=== PATIENT | female | born 1960 | race Caucasian/White ===

== ENCOUNTER → 2016-03-14 | Outpatient (CLI) | payer BC ==
[~2016-03-14] MED LIST: LEVO-240 PO; LEVO100T7 PO; LPT/20 PO; PRT/40 PO; ZLF/100 PO
--- NOTE | 2016-03-14 15:47 | MAMMOGRAPHY REPORT ---
BILATERAL DIGITAL SCREENING MAMMOGRAM TOMOSYNTHESIS WITH CAD: 03/14/2016 TECHNIQUE: Breast tomosynthesis in addition to standard 2D mammography was performed. Current study was also evaluated with a Computer Aided Detection (CAD) system. COMPARISON: Comparison is made to exams dated: 03/10/2015 mammogram, 03/08/2014 mammogram, 02/21/2012 m ammogram, 03/05/2013 mammogram, 02/19/2011 mammogram, and 02/15/2010 mammogram - [facility]. BREAST COMPOSITION: There are scattered areas of fibroglandular density in both breasts. FINDINGS: No suspicious masses, calcifications, or areas of architectural distortion are noted in e ither breast. There has been no significant interval change compared to prior exams. IMPRESSION: ACR BI-RADS CATEGORY 1: NEGATIVE There is no mammographic evidence of malignancy. A 1 year screening mammogram is recommended. The p atient will receive written notification of the results. Approximately 10% of breast cancers are not detected with mammography. A negative mammographic repor t should not delay biopsy if a clinically suggestive mass is present. Elizabeth Wooten M.D. /:03/14/2016 15:20:01 Rental Sales Agent: Aaliyah URIAS(Shaina)(M), [facility] letter sent: Normal 1/2 BI-RADS Code: ACR BI-RADS Category 1: Negative
== END | disposition home or self-care (01) ==
LOC: C.MAMM 09:37
PROVIDERS: ATTEND Obstetrics & Gynecology
DX: Z12.31 Encounter for screening mammogram for malignant neoplasm of breast (principal)

== ENCOUNTER → 2016-07-16 | Outpatient (CLI) | payer BC ==
[~2016-07-16] MED LIST changes: +PANT40TA2 PO; -PRT/40 PO
== END | disposition home or self-care (01) ==
LOC: C.PAPS 08:50
PROVIDERS: ATTEND Obstetrics & Gynecology
DX: Z01.419 Encounter for gynecological examination (general) (routine) without abnormal findings (principal)

== ENCOUNTER → 2017-03-18 | Outpatient (CLI) | payer OTHER ==
[~2017-03-18] MED LIST changes: -LPT/20 PO; +LPT20 PO
--- NOTE | 2017-03-19 07:52 | MAMMOGRAPHY REPORT ---
BILATERAL DIGITAL SCREENING MAMMOGRAM TOMOSYNTHESIS WITH CAD: 03/18/2017 CLINICAL HISTORY: Routine screening examination. TECHNIQUE: Breast tomosynthesis in addition to standard 2D mammography was performed. Current study was also evaluated with a Computer Aided Detection (CAD) system. COMPARISON: Comparison is made to exams dated: 03/14/2016 mammogram, 03/10/2015 mammogram, 03/08/2014 carmela mogram, 03/05/2013 mammogram, 02/21/2012 mammogram, and 02/19/2011 mammogram - [facility]. BREAST COMPOSITION: There are scattered areas of fibroglandular density in both breasts. FINDINGS: The parenchymal pattern is similar to prior mammograms, including stable asymmetry in the lateral right breast. No developing mass, architectural distortion or cluster of suspicious microcal cifications is seen in either breast. IMPRESSION: ACR BI-RADS CATEGORY 2: BENIGN There is no mammographic evidence of malignancy. A 1 year screening mammogram is recommended. The pa tient will receive written notification of the results. Approximately 10% of breast cancers are not detected with mammography. A negative mammographic report should not delay biopsy if a clinically suggestive mass is present. Kate Meneses M.D. ay/:03/18/2017 15:47:42 Communications Field Technician: Sarah URIAS(Shaina)(Bhanu), [facility] letter sent: Normal 1/2 BI-RADS Code: ACR BI-RADS Category 2: Benign
== END | disposition home or self-care (01) ==
LOC: C.MAMM 08:37
PROVIDERS: ATTEND Obstetrics & Gynecology
DX: Z12.31 Encounter for screening mammogram for malignant neoplasm of breast (principal)

== ENCOUNTER → 2017-07-01 | Outpatient (CLI) | payer OTHER ==
--- NOTE | 2017-07-01 16:19 | DIAGNOSTIC IMAGING REPORT ---
R FOOT MIN 3 VIEWS ROUTINE CLINICAL HISTORY: M79.674 trauma COMPARISON: None DISCUSSION: Transverse fracture base proximal phalanx fifth toe. Oblique nondisplaced cortical fracture proximal phalanx fourth toe. Generalized localized soft tissue edema. All remaining osseous structures are unremarkable. Mild bunion deformity distal first metatarsal. Subtalar joint is intact. IMPRESSION: 1. Transverse nondisplaced fracture base proximal phalanx fifth toe. 2. Oblique nondisplaced fracture proximal phalanx fourth toe. 3. Localized soft tissue edema The above report was generated using voice recognition software. It may contain grammatical, syntax or spelling errors. Electronically signed by: Kaz Luke M.D. 07/01/2017 4:18 PM Dictated Date/Time: 07/01/2017 4:16 PM
== END | disposition home or self-care (01) ==
LOC: C.RAD1850 15:51
PROVIDERS: ATTEND Student in an Organized Health Care Education/Training Program
DX: S92.534A Nondisplaced fracture of distal phalanx of right lesser toe(s), initial encounter for closed fracture (principal); X58.XXXA Exposure to other specified factors, initial encounter

== ENCOUNTER → 2017-07-17 | Outpatient (CLI) | payer OTHER | END | disposition home or self-care (01) | LOC: C.PAPS 11:33 | PROVIDERS: ATTEND Obstetrics & Gynecology | DX: Z01.419 Encounter for gynecological examination (general) (routine) without abnormal findings (principal) ==

== ENCOUNTER 2023-06-20 02:53 | Observation (INO) ==
[2023-06-20] MEDS: NITROGLYCERIN 2% OINTMENT 30GM TUBE EXT ONE (03:09)
[2023-06-20] MEDS: ASPIRIN 81 MG CHEW PO STA (03:10)
--- NOTE | 2023-06-20 03:11 | Emergency Department Note ---
History of Present Illness General Chief complaint: Chest Pain Stated complaint: CHEST PAIN Time Seen by Provider: 06/20/23 02:59 History of Present Illness Maximum Pain Intensity: 5 This is a 63-year-old female presenting to the emergency department for evaluation of left-sided chest pain that began roughly 20 minutes prior to arrival around 2:30 AM. Patient states that the pain is a heaviness at the left side of her sternum. Pain is persistent and she does have the discomfort on arrival to the ER. The discomfort is rated a 5/10. Patient did travel to and from [place] 2 months ago, but no recent travel since then. Patient is usually healthy with known history of elevated cholesterol. She does not have any known cardiopulmonary disease or diabetes otherwise. Patient's mother does have history of multiple cardiac conditions, but is still alive at the age of 8585 years old. Patient has not had fevers or chills. She may have some mild dizziness. She did take a regular aspirin before coming to the ER. Home Medications Medication Instructions Recorded Confirmed Type calcium citrate 200 mg (950 mg) PO 11/10/18 05/29/23 History tablet multivitamin (Multiple Vitamins 1 tab PO DAILY 11/10/18 04/10/21 History tablet) levothyroxine 100 mcg capsule 100 mcg PO DAILY 12/11/18 05/29/23 History famotidine PO 04/10/21 05/29/23 History bupropion HCl 300 mg 24 hr tablet, mg PO 05/29/23 05/29/23 History extended release estradiol 0.01% (0.1 mg/gram) 1 g vaginal .COMPLEX #42.5 grams 05/29/23 05/29/23 Rx vaginal cream Allergies Allergy/AdvReac Type Severity Reaction Status Date / Time No Known Drug Allergies Allergy Verified 05/29/23 15:46 pollen extracts Allergy Verified 05/29/23 15:46 Past Med/Surg History Medical History (Updated 06/20/23 @ 05:57 by Asael Shahid PA-C) Pelvic pain Follicular cystitis Surgical History S/P laparoscopy Hx of section S/P appendectomy Family History Father Colorectal cancer Prostate cancer Mother Diabetes Heart disease Aunt Breast cancer Denies family history of Ovarian cancer Social History Smoking Status: Never smoker Do You Dip or Chew Tobacco: No; Preferred Language: Bahraini Feels Safe at Home: Yes Review of Systems A total of 10 systems reviewed and were otherwise negative Physical Exam Vital Signs Vital Signs - 24 hr 06/20/23 02:54 06/20/23 03:00 06/20/23 03:01 Temperature 36.5 C Temperature Source Temporal Artery Scan Pulse Rate 84 85 Pulse Rate [Apical] Pulse Rate from SpO2 Sensor Pulse Rhythm Regular Pulse Strength Normal Respiratory Rate 20 Respiratory Effort / Characteristics Non-Labored Spontaneous Respiratory Depth Normal Respiratory Pattern Regular Blood Pressure 164/84 H 149/91 H Blood Pressure [Right Arm] Blood Pressure Mean 110 109 Blood Pressure Mean [Right Arm] Blood Pressure Position Sitting Pulse Oximetry 99 Oxygen Delivery Method Room Air Oxygen Flow Rate Sepsis Recent Fever Within 48 Hours No Sepsis New/Unexplained Change in Mental Status No Sepsis Action Taken by Nursing No Action Required 06/20/23 03:01 06/20/23 03:11 06/20/23 03:11 Temperature Temperature Source Pulse Rate 89 Pulse Rate [Apical] Pulse Rate from SpO2 Sensor 89 Pulse Rhythm Pulse Strength Respiratory Rate 13 Respiratory Effort / Characteristics Respiratory Depth Respiratory Pattern Blood Pressure 146/98 H 146/98 H Blood Pressure [Right Arm] Blood Pressure Mean 119 119 Blood Pressure Mean [Right Arm] Blood Pressure Position Pulse Oximetry 100 Oxygen Delivery Method Oxygen Flow Rate Sepsis Recent Fever Within 48 Hours Sepsis New/Unexplained Change in Mental Status Sepsis Action Taken by Nursing 06/20/23 03:11 06/20/23 03:15 06/20/23 03:15 Temperature Temperature Source Pulse Rate 82 77 Pulse Rate [Apical] Pulse Rate from SpO2 Sensor Pulse Rhythm Pulse Strength Respiratory Rate 15 13 Respiratory Effort / Characteristics Respiratory Depth Respiratory Pattern Blood Pressure 139/92 Blood Pressure [Right Arm] Blood Pressure Mean 113 Blood Pressure Mean [Right Arm] Blood Pressure Position Pulse Oximetry Oxygen Delivery Method Oxygen Flow Rate Sepsis Recent Fever Within 48 Hours Sepsis New/Unexplained Change in Mental Status Sepsis Action Taken by Nursing 06/20/23 03:30 06/20/23 03:30 06/20/23 03:45 Temperature Temperature Source Pulse Rate 78 Pulse Rate [Apical] Pulse Rate from SpO2 Sensor Pulse Rhythm Pulse Strength Respiratory Rate 17 Respiratory Effort / Characteristics Respiratory Depth Respiratory Pattern Blood Pressure 148/91 H 127/85 Blood Pressure [Right Arm] Blood Pressure Mean 117 94 Blood Pressure Mean [Right Arm] Blood Pressure Position Pulse Oximetry Oxygen Delivery Method Oxygen Flow Rate Sepsis Recent Fever Within 48 Hours Sepsis New/Unexplained Change in Mental Status Sepsis Action Taken by Nursing 06/20/23 03:45 06/20/23 03:53 06/20/23 04:00 Temperature Temperature Source Pulse Rate 72 Pulse Rate [Apical] 73 Pulse Rate from SpO2 Sensor Pulse Rhythm Pulse Strength Respiratory Rate 16 16 Respiratory Effort / Characteristics Respiratory Depth Respiratory Pattern Blood Pressure 134/93 Blood Pressure [Right Arm] 134/93 Blood Pressure Mean 106 Blood Pressure Mean [Right Arm] 106 Blood Pressure Position Pulse Oximetry 95 Oxygen Delivery Method Oxygen Flow Rate Sepsis Recent Fever Within 48 Hours Sepsis New/Unexplained Change in Mental Status Sepsis Action Taken by Nursing 06/20/23 04:00 06/20/23 04:17 06/20/23 04:17 Temperature Temperature Source Pulse Rate 77 Pulse Rate [Apical] Pulse Rate from SpO2 Sensor Pulse Rhythm Pulse Strength Respiratory Rate 18 Respiratory Effort / Characteristics Respiratory Depth Respiratory Pattern Blood Pressure Blood Pressure [Right Arm] Blood Pressure Mean Blood Pressure Mean [Right Arm] Blood Pressure Position Pulse Oximetry 98 98 Oxygen Delivery Method Room Air Room Air Oxygen Flow Rate 0 0 Sepsis Recent Fever Within 48 Hours Sepsis New/Unexplained Change in Mental Status Sepsis Action Taken by Nursing 06/20/23 04:30 06/20/23 04:30 06/20/23 04:45 Temperature Temperature Source Pulse Rate 70 Pulse Rate [Apical] Pulse Rate from SpO2 Sensor Pulse Rhythm Pulse Strength Respiratory Rate 13 Respiratory Effort / Characteristics Respiratory Depth Respiratory Pattern Blood Pressure 127/82 122/81 Blood Pressure [Right Arm] Blood Pressure Mean 96 88 Blood Pressure Mean [Right Arm] Blood Pressure Position Pulse Oximetry Oxygen Delivery Method Oxygen Flow Rate Sepsis Recent Fever Within 48 Hours Sepsis New/Unexplained Change in Mental Status Sepsis Action Taken by Nursing 06/20/23 04:45 06/20/23 05:00 06/20/23 05:00 Temperature Temperature Source Pulse Rate 71 70 Pulse Rate [Apical] Pulse Rate from SpO2 Sensor 71 70 Pulse Rhythm Pulse Strength Respiratory Rate 15 15 Respiratory Effort / Characteristics Respiratory Depth Respiratory Pattern Blood Pressure 113/73 Blood Pressure [Right Arm] Blood Pressure Mean 89 Blood Pressure Mean [Right Arm] Blood Pressure Position Pulse Oximetry 99 97 Oxygen Delivery Method Oxygen Flow Rate Sepsis Recent Fever Within 48 Hours Sepsis New/Unexplained Change in Mental Status Sepsis Action Taken by Nursing VITALS: Vitals are noted on the nurse's note and reviewed by myself. Vital signs stable. GENERAL: Well-developed, well-nourished, white female, who is in no acute distress and resting comfortably. Patient is cooperative with the examination. HEAD: Normocephalic atraumatic. HEART: Regular rate and rhythm without murmurs gallops or rubs. LUNGS: Clear to auscultation bilaterally without wheezes, rales or rhonchi. No retractions or accessory muscle use. ABDOMEN: Positive normal bowel sounds x 4. Soft, nontender, without masses or organomegaly. No guarding or rebound tenderness. MUSCULOSKELETAL: No muscle atrophy, erythema, or edema noted. Full range of motion in all extremities. Course Administered Medications Discontinued Medications Aspirin (Aspirin 81 Mg Chew) 324 mg PO NOW STA Stop: 06/20/23 03:03 Last Admin: 06/20/23 03:10 Dose: Not Given Documented By: DENIA Nitroglycerin (Nitroglycerin 2% Ointment 30gm Tube) 1 inch EXT NOW ONE Stop: 06/20/23 03:03 Last Admin: 06/20/23 03:09 Dose: 1 inch Documented By: DENIA Medical Decision Making Differential Diagnosis Differential diagnosis includes, but is not limited to: Myocardial infarction, dysrhythmia, pericarditis, pneumothorax, aortic aneurysm/dissection, DVT/PE, anxiety, GERD, PUD, electrolyte imbalance, thyroid disorder, pneumonia, bronchitis, pancreatitis, and others Laboratory Data 06/20/23 03:10 06/20/23 03:10 Lab Results 06/20/23 06/20/23 06/20/23 Range/Units 03:10 04:18 Unknown WBC 4.92 (4.8-10.8) K/ul RBC 4.37 (4.20-5.40) M/uL Hgb 13.4 (12.0-16.0) g/dl Hct 40.5 (37.0-47.0) % MCV 92.7 (80.0-100.0) fL MCH 30.7 (25.0-34.0) pg MCHC 33.1 (32.0-36.0) g/dL RDW Std Deviation 44.5 (36.4-46.3) fL RDW Coeff of Shubham 13.0 (11.5-14.5) % Plt Count 253 (130-400) K/uL MPV 9.3 L (9.4-12.4) fL Immature Gran % (Auto) 0.2 % Neut % (Auto) 41.1 % Lymph % (Auto) 47.6 % Prentiss % (Auto) 7.1 % Eos % (Auto) 3.0 % Baso % (Auto) 1.0 % Neut # (Auto) 2.02 (1.40-6.50) K/uL Lymph # (Auto) 2.34 (1.20-3.40) K/uL Prentiss # (Auto) 0.35 (0.11-0.59) K/uL Eos # (Auto) 0.15 (0.00-0.50) K/uL Baso # (Auto) 0.05 (0.00-0.20) K/uL Immature Gran # (Auto) 0.01 (0.01-0.20) K/uL PT 12.4 H (9.0-12.0) Seconds INR 1.1 (0.9-1.1) APTT 28 (21-31) Seconds PTT Ratio 1.0 D-Dimer 230 (0-500) ug/L FEU Sodium 138 (136-145) mmol/L Potassium 3.7 (3.5-5.1) mmol/L Chloride 103 (98-107) mmol/L Carbon Dioxide 29 (21-32) mmol/L Anion Gap 6 (3-11) BUN 17 (6-23) mg/dl Creatinine 1.02 (0.6-1.2) mg/dl Est Cr Clr Drug Dosing 47.3 ml/min Est GFR ( Amer) 68.3 ml/min Est GFR (Non-Af Amer) 58.9 ml/min BUN/Creatinine Ratio 16.7 (10-20) Glucose 98 (70-99(Fasting)) mg/dl Calcium 9.8 (8.6-10.3) mg/dl Total Bilirubin 0.5 (0.2-1.0) mg/dl AST 19 (13-39) U/L ALT 15 (7-52) U/L Alkaline Phosphatase 60 (34-104) U/L Troponin I High Sens 2.9 (0-14) pg/ml Total Protein 7.6 (6.0-8.3) gm/dl Albumin 4.8 (3.4-5.0) gm/dl Globulin 2.8 (2.5-4.0) gm/dl Albumin/Globulin Ratio 1.7 (0.9-2) Lipase 19 (11-82) U/L Urine Color Yellow Urine Appearance Clear (Clear) Urine pH 7.0 (4.5-7.5) Ur Specific Lena 1.009 (1.000-1.030) Urine Protein Negative (Negative) Urine Glucose (UA) Negative (Negative) Urine Ketones Negative (Negative) Urine Blood Negative (Negative) Urine Nitrite Negative (Negative) Urine Bilirubin Negative (Negative) Urine Urobilinogen Negative (Negative) Ur Leukocyte Esterase Negative (Negative) Adenovirus (PCR) Not Detected (NotDetected) B. pertussis DNA (PCR) Not Detected (NotDetected) B.parapertussis DNA PCR Not Detected (NotDetected) C. pneumoniae DNA (PCR) Not Detected (NotDetected) Coronavirus OC43 (PCR) Not Detected (NotDetected) Coronavirus HKU1 (PCR) Not Detected (NotDetected) Coronavirus 229E (PCR) Not Detected (NotDetected) SARS-CoV-2 (PCR) Not Detected (NotDetected) Coronavirus NL63 (PCR) Not Detected (NotDetected) Human Metapneumovir PCR Not Detected (NotDetected) Influenza Type A (PCR) Not Detected (NotDetected) Influenza Type B (PCR) Not Detected (NotDetected) M. pneumoniae (PCR) Not Detected (NotDetected) Parainfluenza 1 (PCR) Not Detected (NotDetected) Parainfluenza 2 (PCR) Not Detected (NotDetected) Parainfluenza 3 (PCR) Not Detected (NotDetected) Parainfluenza 4 (PCR) Not Detected (NotDetected) RSV (PCR) Not Detected (NotDetected) Entero/Rhino (PCR) Not Detected (NotDetected) MDM Narrative Physical exam and history were performed. Nursing notes, EMR, and Medication List were personally reviewed. No social concerns were identified as barriers to patients care. Patient appears to have left-sided chest pain bringing her to the ER. IV access was established and labs were obtained. Patient was hydrated normal saline and Nitropaste was applied. 2 EKGs were performed and did not show acute ST elevation. An order was placed for continuous cardiac monitoring. The monitor shows a rate of 70 with normal sinus rhythm. Patient's blood work is as above and was reviewed. She does not have a significant elevated white blood cell count, gross anemia, bandemia, or significant electrolyte imbalance. Transaminases are not diagnostic. Troponin x 1 is negative. Bio fire is negative. Chest x-ray does not show acute process. On reevaluation the patient did feel better after the Nitropaste. Patient has never had echocardiogram, and her symptoms certainly could be cardiac in nature. There is a strong maternal history of cardiac disease. Overall the patient does not seem well for discharge home. She will need a cardiac rule out. Case was discussed with the on-call hospitalist team, who agreed to evaluate the patient here in the ER. Please see their dictation for further patient course, plan, disposition. The chart was completed utilizing [employer] Speech Voice Recognition Software. Grammatical errors, random word insertions, pronoun errors, and incomplete sentences are an occasional consequence of this system due to software limitations, ambient noise, and hardware issues. Any formal questions or concerns about the content, text, or information contained within the body of this dictation should be directly addressed to the provider for clarification. . Impression & Plan Atypical chest pain Discharge Plan Visit Data Chief Complaint: Chest Pain Stated Complaint: CHEST PAIN ED Provider: Leah Byrd ED Midlevel Provider: Asael Shahid Discharge Problem: Atypical chest pain Forms Stand Alone Forms: [employer] Prescriptions Prescriptions: No Action multivitamin [Multiple Vitamins] tablet 1 tab PO DAILY calcium citrate 200 mg (950 mg) tablet PO levothyroxine 100 mcg capsule 100 mcg PO DAILY famotidine PO bupropion HCl 300 mg tablet extended release 24 hr PO estradiol 0.01 % (0.1 mg/gram) cream 1 g vaginal .COMPLEX Qty: 42.5 1RF Rx Instructions: 1 g vaginal; 1gm PV daily for 14 days, then 1/2gm PV twice weekly Referrals Referrals: Niranjan Pichardo [Primary Care Provider] -
[2023-06-20 03:39] LABS: Basophils # (auto) 0.05 K/uL (0.00-0.20); Eosinophils # (auto) 0.15 K/uL (0.00-0.50); Hematocrit (blood only) 40.5 % (37.0-47.0); Hemoglobin 13.4 g/dl (12.0-16.0); Immature Granulocytes # (auto) 0.01 K/uL (0.01-0.20); Immature Granulocytes % (auto) 0.2 %; Lymphocytes # (auto) 2.34 K/uL (1.20-3.40); Lymphocytes % (auto) 47.6 %; Mean Corpuscular Hemoglobin 30.7 pg (25.0-34.0); Mean Corpuscular Hgb Conc 33.1 g/dL (32.0-36.0); Mean Corpuscular Volume 92.7 fL (80.0-100.0); Mean Platelet Volume 9.3 fL (9.4-12.4); Monocytes # (auto) 0.35 K/uL (0.11-0.59); Monocytes % (auto) 7.1 %; Neutrophils # (auto) 2.02 K/uL (1.40-6.50); Neutrophils % (auto) 41.1 %; Platelet Count 253 K/uL (130-400); RDW Standard Deviation 44.5 fL (36.4-46.3); Red Blood Count 4.37 M/uL (4.20-5.40); White Blood Count 4.92 K/ul (4.8-10.8)
[2023-06-20 03:53] LABS: Albumin Globulin Ratio 1.7 (0.9-2); Albumin Level 4.8 gm/dl (3.4-5.0); BUN Creatinine Ratio 16.7 (10-20); Bilirubin,Total 0.5 mg/dl (0.2-1.0); Calcium 9.8 mg/dl (8.6-10.3); Creatinine Clr Calc Pharmacy 47.3 ml/min; Est GFR (African American) 68.3 ml/min; Est GFR (Non-African American) 58.9 ml/min; Globulin 2.8 gm/dl (2.5-4.0); Potassium 3.7 mmol/L (3.5-5.1); Total Protein 7.6 gm/dl (6.0-8.3)
[2023-06-20 03:58] LABS: Troponin I High Sensitivity 2.9 pg/ml (0-14)
[2023-06-20 04:02] LABS: D Dimer 230 ug/L FEU (0-500); INR 1.1 (0.9-1.1); Partial Thromboplastin Time 28 Seconds (21-31); Prothrombin Time 12.4 Seconds (9.0-12.0)
[2023-06-20 04:21] LABS: Adenovirus PCR Not Detected (NotDetected); Bordetella parapertussis PCR Not Detected (NotDetected); Bordetella pertussis PCR Not Detected (NotDetected); Chlamydia pneumoniae PCR Not Detected (NotDetected); Coronavirus 229E PCR Not Detected (NotDetected); Coronavirus CoV-2 (COVID19)PCR Not Detected (NotDetected); Coronavirus HKU1 PCR Not Detected (NotDetected); Coronavirus NL63 PCR Not Detected (NotDetected); Coronavirus OC43PCR Not Detected (NotDetected); Human Metapneumovirus PCR Not Detected (NotDetected); Influenza A PCR Not Detected (NotDetected); Influenza B PCR Not Detected (NotDetected); Mycoplasma pneumoniae PCR Not Detected (NotDetected); Parainfluenza Virus 1 PCR Not Detected (NotDetected); Parainfluenza Virus 2 PCR Not Detected (NotDetected); Parainfluenza Virus 3 PCR Not Detected (NotDetected); Parainfluenza Virus 4 PCR Not Detected (NotDetected); Respiratory Syncytial VirusPCR Not Detected (NotDetected); Rhinovirus/Enterovirus PCR Not Detected (NotDetected)
[2023-06-20 04:38] LABS: Appearance Urine Clear (Clear); Bilirubin Urine Negative (Negative); Blood Urine Negative (Negative); Color Urine Yellow; Glucose Urine UA Negative (Negative); Ketones Urine Negative (Negative); Leukocyte Esterase Urine Negative (Negative); Nitrite Urine Negative (Negative); Protein Urine Negative (Negative); Specific Gravity Urine 1.009 (1.000-1.030); Urobilinogen Urine Negative (Negative)
--- NOTE | 2023-06-20 05:08 | History & Physical Report ---
Date of Service June 20, 2023 Assessment & Plan (1) Chest pain: Plan: Pt is a 63 yo female with PMH of HLD, hypothyroidism, and depression presenting to the ER d/t chest pain. Chest pain - started around 2 AM which woke from pt from sleep - lab work significant for CBC WNL, CMP WNL, initial trop ~3AM negative, 2nd trop pending - EKG w/o ischemic changes - RVP neg - CXR w/o acute pathology - will trend troponin; stress echo ordered - suspect possible component of GERD exacerbating pt's symptoms; discussed interventions including daily preventative famotidine and PPI; recommend continued outpatient f/u for this HLD - pt previously on a statin but had "joint aches" with this so it was discontinued - per pt, repeat cholesterol level was slightly lower Hypothyroidism - continue home levothyroxine 100 mcg daily Diet: NPO VTE ppx: deferred, pt ambulatory Code: full Dispo: admit to med/tele (2) Depression: (3) Hypercholesterolemia: (4) Hypothyroidism: History of Present Illness Chief Complaint: chest pain Primary Care Provider: Niranjan Pichardo Pt is a 63 yo female with PMH of HLD, hypothyroidism, and depression presenting to the ER d/t chest pain. Pt describes left sided, substernal chest pain that started ~2AM which woke her from sleep. She got out of bed and tried to "walk it off" but this did not help. She also felt dizzy like she could not walk correctly. At this point, she took an aspirin and tried again to walk around but the pain did not subside. At this point, she woke her and told him that she was also having pain down her left arm. They decided to come to the hospital because she has never had chest pain like this before. She denies nausea, vomiting, sweating, syncope, and vision changes. Pt does note that she has a hx of GERD for which she takes PRN famotidine. Her GERD has been acting up more lately, including yesterday. She had pasta with "a little" sauce for dinner last night. She also notes that her mom has a significant cardiac hx (CHF and myocarditis- no OR). Pt has no other family hx of OR. Pt has no personal hx of OR or stroke. In the ER, pt was treated with nitro paste which relieved her chest pain. Allergies Allergy/AdvReac Type Severity Reaction Status Date / Time fluoxetine [From Prozac] Allergy Unknown Gastrointestinal Unverified 06/20/23 08:25 Upset No Known Drug Allergies Allergy Verified 05/29/23 15:46 pollen extracts Allergy Verified 06/20/23 08:25 Home Medications Medication Instructions Recorded Confirmed Type calcium citrate 200 mg (950 mg) 950 mg PO DAILY 11/10/18 06/20/23 History tablet multivitamin (Multiple Vitamins 1 tab PO DAILY 11/10/18 06/20/23 History tablet) levothyroxine 100 mcg capsule 100 mcg PO DAILYBB 12/11/18 06/20/23 History bupropion HCl 300 mg 24 hr tablet, 300 mg PO DAILY 06/20/23 06/20/23 History extended release estradiol 0.01% (0.1 mg/gram) 0.5 g vaginal 2XWK 06/20/23 06/20/23 History vaginal cream famotidine 40 mg tablet 40 mg PO DAILY 06/20/23 06/20/23 History Past Med/Surg History Medical History (Updated 06/20/23 @ 05:57 by Asael Shahid PA-C) Pelvic pain Follicular cystitis Surgical History S/P laparoscopy Hx of section S/P appendectomy Family History Father Colorectal cancer Prostate cancer Mother Diabetes Heart disease Aunt Breast cancer Denies family history of Ovarian cancer Social History Smoking Status: Never smoker Do You Dip or Chew Tobacco: No; Hx Substance Use: No Preferred Language: Slovak Communication Ability: Effective Swine Extension Field Specialist Required: No Beliefs That Will Affect Care: None Current Living Situation: Spouse Feels Safe at Home: Yes Safety Concerns: Feels Safe At This Time Assistive Devices: Glasses Review of Systems Review of Systems: As per HPI Physical Exam Constitutional: NAD, vitals WNL. Respiratory: CTA bilaterally. Non labored breathing. No rhonchi, wheezing, or crackles. Cardiovascular: RRR. No murmurs noted. No LE edema. Gastrointestinal (Abdomen): Nontender, nontender, +BS. No masses noted. Skin: No rashes or skin lesions noted. Neurologic: Sensation grossly intact. No FND appreciated. Psychiatric: Speech of normal pace and content. Mood and affect congruent. Results & Data Results & Data Vital Signs (Past 12 Hours) Vital Signs Temp Pulse Pulse Resp BP BP Pulse Ox 06/20/23 04:17 98 06/20/23 04:17 98 06/20/23 04:00 77 18 06/20/23 04:00 134/93 06/20/23 03:53 73 16 134/93 95 06/20/23 03:45 72 16 06/20/23 03:45 127/85 06/20/23 03:30 148/91 H 06/20/23 03:30 78 17 06/20/23 03:15 139/92 06/20/23 03:15 77 13 06/20/23 03:11 82 15 06/20/23 03:11 146/98 H 06/20/23 03:11 146/98 H 06/20/23 03:01 89 13 100 06/20/23 03:01 85 06/20/23 03:00 149/91 H 06/20/23 02:54 36.5 C 84 20 164/84 H 99 O2 Del Method O2 Flow Rate 06/20/23 04:17 Room Air 0 06/20/23 04:17 Room Air 0 06/20/23 04:00 06/20/23 04:00 06/20/23 03:53 06/20/23 03:45 06/20/23 03:45 06/20/23 03:30 06/20/23 03:30 06/20/23 03:15 06/20/23 03:15 06/20/23 03:11 06/20/23 03:11 06/20/23 03:11 06/20/23 03:01 06/20/23 03:01 06/20/23 03:00 06/20/23 02:54 Room Air Supervising Physician Co-Signing Physician Notes Attending addendum: I have physically seen this patient, have supervised the medical residents activities, and agree with the H&P unless as otherwise noted. Assessment and Plan: Substernal chest pain- Patient was awoken by severe pain around 2 AM this morning Initial troponin 2.9, with follow-up 2.5 The patient will be admitted to telemetry for serial cardiac enzymes, serial EKG's, cardiac rhythm monitoring and a stress echocardiogram GERD- Continue famotidine If cardiac workup negative, may need to adjust medication Hypothyroidism- Continue levothyroxine Resident Activity Tracking Resident Involvement: Resident Care Provided Care Provided: Adult [facility] Medicine
[2023-06-20] MEDS ORDERED: MELATONIN 3 MG TAB PO PRN (05:29)
[2023-06-20] MEDS ORDERED: ACETAMINOPHEN 325 MG TAB PO PRN (05:29)
[2023-06-20] MEDS ORDERED: ONDANSETRON INJ 2 MG/ML 2 ML VIAL IV PRN (05:29)
[2023-06-20] MEDS ORDERED: FAMOTIDINE 20 MG TAB PO PRN (06:06)
[2023-06-20 06:16] VITALS: TEMP 98.4
[2023-06-20] MEDS: LEVOTHYROXINE SODIUM 100 MCG TABLET PO SCH (07:13)
--- NOTE | 2023-06-20 07:36 | XRay Report ---
XR chest 1V portable HISTORY: 63 years-old Female Chest pain, nonspecific COMPARISON: 08/30/2022 TECHNIQUE: AP view of the chest FINDINGS: Cardiomediastinal and hilar silhouettes are unchanged. Midthoracic dextroscoliosis redemonstrated. No pneumothorax, pleural effusion, airspace consolidation or pulmonary edema. IMPRESSION: No acute process. ACT 112: Negative or not required by law. The above report was generated using voice recognition software. It may contain grammatical, syntax o r spelling errors. Electronically signed by: Vishal Hart M.D. 06/20/2023 7:35 AM
[2023-06-20] MEDS: buPROPion XL 300 MG TABCR PO SCH (08:36)
--- NOTE | 2023-06-20 09:12 | Electrocardiogram Report ---
Test Reason : Blood Pressure : / mmHG Vent. Rate : 086 BPM Atrial Rate : 086 BPM P-R Int : 204 ms QRS Dur : 076 ms QT Int : 366 ms P-R-T Axes : 074 058 049 degrees QTc Int : 437 ms Normal sinus rhythm Normal ECG No previous ECGs available Confirmed by Madhav Gagnon ([id number]) on 06/20/2023 9:11:46 AM Referred By: REFERRED SELF Confirmed By:Cruz Gagnon
[2023-06-20 11:47] VITALS: O2SAT 98
--- NOTE | 2023-06-20 13:50 | Discharge Summary ---
Date of Service June 20, 2023 Admission HPI Per Admitting Provider Pt is a 63 yo female with PMH of HLD, hypothyroidism, and depression presenting to the ER d/t chest pain. Pt describes left sided, substernal chest pain that started ~2AM which woke her from sleep. She got out of bed and tried to "walk it off" but this did not help. She also felt dizzy like she could not walk correctly. At this point, she took an aspirin and tried again to walk around but the pain did not subside. At this point, she woke her and told him that she was also having pain down her left arm. They decided to come to the hospital because she has never had chest pain like this before. She denies nausea, vomiting, sweating, syncope, and vision changes. Pt does note that she has a hx of GERD for which she takes PRN famotidine. Her GERD has been acting up more lately, including yesterday. She had pasta with "a little" sauce for dinner last night. She also notes that her mom has a significant cardiac hx (CHF and myocarditis- no NJ). Pt has no other family hx of NJ. Pt has no personal hx of NJ or stroke. In the ER, pt was treated with nitro paste which relieved her chest pain. Admission Exam Per Admitting Provider Constitutional: NAD, vitals WNL. Respiratory: CTA bilaterally. Non labored breathing. No rhonchi, wheezing, or crackles. Cardiovascular: RRR. No murmurs noted. No LE edema. Gastrointestinal (Abdomen): Nontender, nontender, +BS. No masses noted. Skin: No rashes or skin lesions noted. Neurologic: Sensation grossly intact. No FND appreciated. Psychiatric: Speech of normal pace and content. Mood and affect congruent. Principal Diagnosis GERD Discharge Exam General: AAOx3, afebrile, NAD CV: RRR, no r/m/g Pulm: CTA bilaterally, normal resp effort, no resp distress GI: soft, non-tender, non-distended Extre: no swelling in b/l LE, no calf tenderness Discharge Data Allergies Allergy/AdvReac Type Severity Reaction Status Date / Time fluoxetine [From Prozac] Allergy Unknown Gastrointestinal Unverified 06/20/23 08:25 Upset No Known Drug Allergies Allergy Verified 05/29/23 15:46 pollen extracts Allergy Verified 06/20/23 08:25 Hospital Course (1) Chest pain: (2) Depression: (3) Hypercholesterolemia: (4) Hypothyroidism: Plan Pt is a 63 yo female with PMH of HLD, hypothyroidism, and depression presenting to the ER d/t chest pain. Chest pain //GERD (chronic) - started around 2 AM which woke from pt from sleep - lab work significant for CBC WNL, CMP WNL, troponins negative x3 - EKG w/o ischemic changes - RVP neg - CXR w/o acute pathology - Stress echo without evidence of inducible ischemia - Will likely patient's chest pain was as a result of her known history of GERD and not cardiac cause. - Stress echo did note a mildly dilated right atrium which could be related to undiagnosed sleep apnea given patient does snore at night. Consider performing sleep study to evaluate for this. - Encourage addition of PPI for better control of patient's GERD. Advised patient to take Pepcid 2 times a day until she is able to discuss with her PCP and her post discharge follow-up visit. HLD (chronic, stable) - pt previously on a statin but had "joint aches" with this so it was discontinued - per pt, repeat cholesterol level was slightly lower Hypothyroidism (chronic, stable) - continue home levothyroxine 100 mcg daily Patient considered fairly stable to be discharged today. Total Time Total Time Spent Total Time Spent (In Minutes): As per attending attestation. Discharge Plan Discharge Items Patient Disposition: Home - Self-Care Reason For Visit: CHEST PAIN Discharge Diagnosis: Acid Reflux Activity: Per Instructions section Non-emergency contact: Primary Care Provider Call non-emergency contact if: your symptoms worsen and your temperature is above 101 Follow-up/Referrals: Niranjan Pichardo [Primary Care Provider] - Diet: Regular Addtl Attending Provider Instructions: You were admitted to the hospital due to substernal chest pain with radiation to the left side. On arrival to the hospital, lab testing and imaging was done to rule out the possibility that this chest pain was related to cardiac cause. Your heart proteins (troponins) was normal in all 3 measurements that we did. This in combination with a normal EKG (heart electrical activity) decreased the likelihood that this was due to to a heart attack or due to problems with your heart. We investigated further by doing with called a cardiac stress test, which essentially is a test that lets us know if your heart have any problems with getting oxygen in such as what is seen in the some form of heart disease. This is cardiac stress test was also negative. All these tests make us think that the chest pain that you have been experiencing is not related to problems with your heart. We believe that your symptoms were more more likely related to your history of GERD. As we discussed, we advise that you follow-up with your primary care provider to discuss possible additions of medication for better control of her GERD (omeprazole, pantoprazole). Until you are able to see her primary care provider, we advise you to take your Pepcid/famotidine 2 times a day for better symptoms of reflux control. Your echocardiogram (ultrasound of your heart) showed mild changes that could suggest possible underlying sleep apnea. For this reason, as well as your history of snoring while you sleep, we encourage you to speak with your primary care provider about undergoing what is called a sleep study to see if you do have underlying sleep apnea and if a CPAP would be beneficial to you. A discharge summary will be sent to your primary care physician to ensure continuity of care. Please bring this discharge summary with you to your next office appointment so that your provider can review it at that time. Follow-up appointments: Make a follow-up appointment with your PCP within the next 1-2 weeks. It is very important that you follow up with them shortly after discharge from the hospital. Keep all your follow-up appointments as already scheduled. If you cannot make an appointment, notify your provider. Medications: Your medication list has been reviewed and reconciled upon discharge to ensure accuracy and continuity of care. An updated list of all your medications is included with your hospital discharge paperwork. Please review this list closely, and make note of any changes. If you have any issues filling these prescriptions, please call [phone] and ask to leave a message for Dr. Jenkins. Take your medications as instructed; do not skip a dose of your medicines. Make sure all of your doctors know every medicine you are taking (including yjjl-svn-armrpmk medicines, vitamins, and supplements). Call your primary care provider before taking any new medicines (including over- the-counter medicines, vitamins, and supplements), because some of these may interact with your current medications, or may make your symptoms worse. Tell your primary care provider if you cannot afford your medications. CONTACT YOUR PRIMARY CARE PROVIDER if you experience any of the following: Worsening of symptoms Fever, chills, or fatigue Difficulty following your treatment plan, or difficulty taking medications CALL 911 OR GO TO THE EMERGENCY DEPARTMENT if you experience any of the following: Sudden, severe abdominal pain or nausea/vomiting Severe chest pain, or chest pain that radiates (moves) to your jaw or arm Sudden, severe shortness of breath or difficulty breathing Thank you for allowing us to participate in your care. Pending Studies at Discharge: No Stand-Alone Forms: My [facility], Smoking Cessation Medications and DC Order Prescriptions: Continued multivitamin [Multiple Vitamins] tablet 1 tab PO DAILY calcium citrate 200 mg (950 mg) tablet 950 mg PO DAILY levothyroxine 100 mcg capsule 100 mcg PO DAILYBB famotidine 40 mg tablet 40 mg PO DAILY estradiol 0.01 % (0.1 mg/gram) cream 0.5 g VAGINAL 2XWK Rx Instructions: Saturday/ bupropion HCl 300 mg tablet extended release 24 hr 300 mg PO DAILY Discharge Orders: Discharge Order (Routine); Ordered 06/20/23 Ordered By: Liliam Jenkins Admission Data Admit Date/Time: 06/20/23 05:29 Attending Provider: Madhav Muniz Admit Provider: Deepali Joy Primary Care Provider: Niranjan Pichardo Other Interventions: Discharge Summary Assessment (RN) Last Done: 06/20/23 15:00 Supervising Physician Co-Signing Physician Notes Attending attestation Pt seen and examined in concert with Dr. Jenkins. In agreement with the documented findings as noted in the resident documentation with any exceptions or additions as noted here. Resting in bed without acute complaint at time of examination. Resolution and non-recurrence of chest pain though w/ visible reflux at bedside. On examination, S1/S2 nl RRR no MCG. CTAB. Abd NT/ND BS+ve Chest pain - resolved - troponin and stress testing as noted above. Reassurance provided. Consider re-trial of statin therapy vs. evaluation for PSK-9 if increased CV risk remains a concern. GERD - likely cause - recommended BID famotidine therapy and consider addition of PPI therapy with review of omeprazole vs. pantoprazole on discharge Else see resident documentation as noted. Total attending physician time spent with this patient's care on the day of discharge: 40 minutes. Resident Activity Tracking Resident Involvement: Resident Care Provided Care Provided: Adult Hospital Medicine
[2023-06-20 13:56] VITALS: RESP 19
--- NOTE | 2023-06-20 14:21 | XCELERA ---
[id number]
[2023-06-20 15:02] VITALS: BP 101/65; PULSE 71
--- NOTE | 2023-06-20 16:48 | Electrocardiogram Report ---
Test Reason : Blood Pressure : / mmHG Vent. Rate : 076 BPM Atrial Rate : 076 BPM P-R Int : 204 ms QRS Dur : 074 ms QT Int : 394 ms P-R-T Axes : 067 061 046 degrees QTc Int : 443 ms Normal sinus rhythm Normal ECG When compared with ECG of 20-JUN-2023 02:59, No significant change was found Confirmed by Madhav Gagnon ([id number]) on 06/20/2023 4:48:06 PM Referred By: REFERRED SELF Confirmed By:Cruz Gagnon
--- NOTE | 2023-06-21 01:49 | Billing Data ---
Date of Service June 21, 2023 Coding Level of Care Code 65834 INT INP/OBS CARE
== END 2023-06-20 15:04 | disposition home or self-care (01) ==
LOC: EDINP 02:53 → ED 02:53 → SUATTDRO 05:29 → EDINP 06:07
DX: R42 Dizziness and giddiness; Z88.8 Allergy status to other drugs, medicaments and biological substances; Z82.49 Family history of ischemic heart disease and other diseases of the circulatory system; K21.9 Gastro-esophageal reflux disease without esophagitis; E78.00 Pure hypercholesterolemia, unspecified; F32.A Depression, unspecified; E03.9 Hypothyroidism, unspecified; Z79.899 Other long term (current) drug therapy